=== PATIENT | male | born 1965 | race Two or more races ===

== ENCOUNTER 2024-02-04 15:38 | Emergency (ER) | payer BC, OTHER ==
[~2024-02-04] VITALS: Ht 167.6 cm; Wt 65.0 kg
[2024-02-04 15:45] VITALS: BP 130/69; RESP 16; O2SAT 96
[2024-02-04 15:51] VITALS: PULSE 54
[2024-02-04] MEDS ORDERED: SODIUM CHLORIDE 0.9% 1,000 ML IV ONE (16:00)
[2024-02-04 16:20] LABS: Basophils # (auto) 0 10 ^3/uL (0-0.2); Basophils % (auto) 0.5 % (0.0-2.0); Eosinophils # (auto) 0.2 10 ^3/uL (0-0.8); Eosinophils % (auto) 2.3 % (0.0-7.0); Hematocrit 37.5 % (41.0-53.0); Hemoglobin 12.5 g/dL (13.5-17.5); Mean Corpuscular Hemoglobin 28.4 pg (28.0-32.0); Mean Corpuscular Hgb Conc. 33.3 g/dL (32.0-36.0); Mean Corpuscular Volume 85.3 fL (80.0-100.0); Monocytes # (auto) 0.6 10 ^3/uL (0-1.3); Monocytes % (auto) 5.4 % (0.0-12.0); Neutrophils # (auto) 8.4 10 ^3/uL (1.6-8.6); Neutrophils % (auto) 81.8 % (37.0-80.0); Nucleated Red Blood Cells % 0.1 %; Red Cell Distribution Width 13.5 % (11.8-14.3); White Blood Cell 10.2 10^3/uL (4.4-10.8)
[2024-02-04 16:31] LABS: Chloride 109 mmol/L (98-107); Potassium 3.9 mmol/L (3.5-5.1); Sodium 142 mmol/L (136-145)
[2024-02-04 16:32] LABS: Anion Gap 9 (5-15); Calcium 8.7 mg/dL (8.5-10.1); Carbon Dioxide 24 mmol/L (20-30)
[2024-02-04 16:37] LABS: BUN/Creatinine Ratio 18.8 (10.0-20.0); Blood Urea Nitrogen 19 mg/dL (9-23); Glucose 107 mg/dL (74-106)
[2024-02-04 16:38] LABS: Blood Alcohol < 3.0 mg/dL (<10)
[2024-02-04 17:07] LABS: Lipase 41 U/L (12-53)
== END 2024-02-04 19:03 | disposition left against medical advice (07) ==
LOC: ER 15:38 → EDBD 15:38 → ER 19:03
DX: R42 Dizziness and giddiness (principal); R53.1 Weakness; R11.0 Nausea; I25.2 Old myocardial infarction; Z98.890 Other specified postprocedural states
CPT/HCPCS: 36415; 80048; 80320; 83605; 83690; 83880; 84484; 85025; 93005